=== PATIENT | female | born 1990 | race Caucasian/White ===

== ENCOUNTER 2018-11-02 20:40 | Emergency (ER) | payer OTHER ==
[~2018-11-02] VITALS: Ht 157.5 cm; Wt 81.6 kg
== END 2018-11-02 23:21 | disposition home or self-care (01) ==
LOC: ER 20:40
DX: O20.0 Threatened abortion (principal)

== ENCOUNTER 2018-11-05 01:33 | Emergency (ER) | payer OTHER ==
[~2018-11-05] VITALS: Ht 157.5 cm; Wt 81.6 kg
== END 2018-11-05 04:50 | disposition home or self-care (01) ==
LOC: ER 01:33
DX: O20.0 Threatened abortion (principal)

== ENCOUNTER 2019-01-27 17:33 | Emergency (ER) | payer OTHER ==
[~2019-01-27] VITALS: Ht 157.5 cm; Wt 81.2 kg
[2019-01-27] MEDS ORDERED: FOLIC ACID1 MG (18:11)
[2019-01-27] MEDS ORDERED: VITATRUE COMBO1 EACH (18:11)
== END 2019-01-27 22:33 | disposition home or self-care (01) ==
LOC: ER 17:33
DX: O26.892 Other specified pregnancy related conditions, second trimester (principal); R19.7 Diarrhea, unspecified; Z34.02 Encounter for supervision of normal first pregnancy, second trimester

== ENCOUNTER → 2019-02-25 | Outpatient (CLI) | payer OTHER ==
[~2019-02-25] MED LIST: FOLIC ACID1 MG; VITATRUE COMBO1 EACH
== END | disposition home or self-care (01) ==
LOC: PRENATAL 14:03
DX: O35.3XX0 Maternal care for (suspected) damage to fetus from viral disease in mother, not applicable or unspecified (principal); O35.0XX0 Maternal care for (suspected) central nervous system malformation in fetus, not applicable or unspecified; O34.211 Maternal care for low transverse scar from previous cesarean delivery; Z36.0 Encounter for antenatal screening for chromosomal anomalies

== ENCOUNTER → 2019-05-06 | Outpatient (CLI) | payer OTHER | END | disposition home or self-care (01) | LOC: PRENATAL 04-05 13:30 | DX: O26.843 Uterine size-date discrepancy, third trimester (principal); O99.213 Obesity complicating pregnancy, third trimester; O34.219 Maternal care for unspecified type scar from previous cesarean delivery; O65.5 Obstructed labor due to abnormality of maternal pelvic organs; O28.1 Abnormal biochemical finding on antenatal screening of mother; Z3A.30 30 weeks gestation of pregnancy ==

== ENCOUNTER → 2019-06-15 | Outpatient (CLI) | payer OTHER ==
[~2019-06-15] MED LIST changes: +ASPIR 8181 MG PO
== END | disposition home or self-care (01) ==
LOC: PRENATAL 08:27
DX: O28.1 Abnormal biochemical finding on antenatal screening of mother (principal); O99.213 Obesity complicating pregnancy, third trimester; O34.211 Maternal care for low transverse scar from previous cesarean delivery; O26.843 Uterine size-date discrepancy, third trimester; O36.8191 Decreased fetal movements, unspecified trimester, fetus 1

== ENCOUNTER 2019-06-29 11:20 | Inpatient (IN) | payer OTHER ==
[~2019-06-29] VITALS: Ht 157.5 cm; Wt 1.8 kg
== END 2019-07-04 13:54 | disposition home or self-care (01) | DRG 785 ==
LOC: LDR 06-30 22:05 → O/R 06-30 22:05 → OB/GYN 07-01 13:10
PROVIDERS: ADMIT Obstetrics & Gynecology
PROC: 0UL70ZZ Occlusion of Bilateral Fallopian Tubes, Open Approach (ICD-10-PCS; 2019-06-30)
PROC: 3E033VJ Introduction of Other Hormone into Peripheral Vein, Percutaneous Approach (ICD-10-PCS; 2019-06-30)
PROC: 4A1HXCZ Monitoring of Products of Conception, Cardiac Rate, External Approach (ICD-10-PCS; 2019-06-30)
PROC: 10D00Z1 Extraction of Products of Conception, Low, Open Approach (ICD-10-PCS; principal; 2019-07-01 11:00)
DX: O76 Abnormality in fetal heart rate and rhythm complicating labor and delivery (principal); Z3A.38 38 weeks gestation of pregnancy; Z37.0 Single live birth; Z30.2 Encounter for sterilization